=== PATIENT | female | born 1965 | race Caucasian/White ===

== ENCOUNTER 2019-01-17 12:00 | Emergency (ER) | payer OTHER ==
[~2019-01-17] VITALS: Ht 162.6 cm; Wt 66.4 kg
[~2019-01-17 12:00] MED LIST: CLIN300C10 PO
[2019-01-17 12:04] VITALS: Ht 162.6 cm; Wt 66.4 kg
[2019-01-17] MEDS ORDERED: LIDOCAINE 1% (MDV) 20 ML INJ SC ONE (13:30)
[2019-01-17] MEDS ORDERED: CLIN300C10 PO (14:49)
[2019-01-17] MEDS ORDERED: IBUP-1542 PO (14:50)
--- NOTE | 2019-01-17 16:38 | ERD ---
ER Documentation Chief Complaint Chief Complaint abcess vaginal area x 2 weeks HPI Patient is a 53-year-old female presents the ER for concerns of an abscess in her vaginal area x2 weeks. Patient states she went to see her doctor and she was given 5 days of clindamycin. Patient was advised if she does not have imp rovement in symptoms after taking clindamycin she should come to the ER. This patient presents to the ER. She denies any fevers or chills. Patient denies any dysuria, frequency, urgency or hematuria. No recent travel. No sick contacts. ROS All systems reviewed and are negative except as per history of present illness. Medications Home Meds Active Scripts Ibuprofen* (Motrin*) 600 Mg Tab, 600 MG PO Q6, #30 TAB Prov:CORAZON TATUM-Mario 01/17/19 Clindamycin Hcl* (Clindamycin Hcl*) 300 Mg Capsule, 300 MG PO TID for 5 Days, CAP Prov:CORAZON TATUM-C 01/17/19 Clindamycin Hcl* (Clindamycin Hcl*) 300 Mg Capsule, 300 MG PO TID for 10 Days, CAP Prov:ALEX JUAN C 05/29/16 Allergies Allergies: Coded Allergies: Penicillins (Verified Allergy, Intermediate, RASH, 05/31/16) PMhx/Soc History of Surgery: Yes (Pt states fistula rectal area 1 yr ago, vericose veins procedure) Anesthesia Reaction: No Hx Neurological Disorder: No Hx Respiratory Disorders: No Hx Cardiac Disorders: No Hx Psychiatric Problems: No Hx Miscellaneous Medical Probl: No Hx Alcohol Use: No Hx Substance Use: No Hx Tobacco Use: No Smoking Status: Never smoker FmHx Family History: No diabetes Physical Exam Vitals Vital Signs Date Temp Pulse Resp B/P (MAP) Pulse Ox O2 O2 Flow FiO2 Time Delivery Rate 01/17/19 98.3 74 18 150/72 100 12:04 (98) Physical Exam GENERAL: Well-developed, well-nourished female. Appears in no acute distress. Speaking in full sentences. HEAD: Normocephalic, atraumatic. EYES: Pupils are equally reactive bilaterally. EOMs grossly intact. No conju nctival erythema. NECK: Supple. No meningismus. Normal range of motion of the neck. LUNG: Clear to auscultation bilaterally. No rhonchi, wheezing, rales or coarse breath sounds. HEART: Regular rate and rhythm. No murmurs, rubs or gallops. FEMALE GENITALIA: Exam was completed with a flattening press operator present. 3 cm circular mass noted in the left external labia. Area is tender to touch. Minimal fluctuance. Area appears indurated. EXTREMITIES: Equal pulses bilaterally. No peripheral clubbing, cyanosis or edema. No unilateral leg swelling. NEUROLOGIC: Alert and oriented. Moving all four extremities without any difficulty. Normal speech. Steady gait. SKIN: Normal color. Warm and dry. No rashes or lesions. Results 24 hrs Current Medications Medications Dose Sig/Rosa Start Time Status Last (Trade) Ordered Route PRN Stop Time Admin Dose Reason Admin Lidocaine 20 ml ONCE ONCE 01/17/19 DC (Xylocaine SC 13:30 1% (Mdv) 20 01/17/19 13:31 ml) Procedures/MDM ED COURSE: The patient was stable throughout ED course. I kept the patient and/or family informed of laboratory and diagnostic imaging results throughout the ED course. PROCEDURES: INCISION AND DRAINAGE: The patient was verbally consented prior to procedure. Patient was explained the risks, benefits and alternatives to this procedure. Location: L labia Abscess size: 3 cm Anesthesia: local 1% lidocaine, 3 cc Preparation: The area was prepped in a sterile fashion using betadine x3 cleanses. A sterile field was prepared. Technique: A sterile 11 blade scalpel was used to make a 1 cm linear incision into the abscess. Procedure: A midline abscess incision was made using a sterile scalpel in a linear fashion. No discharge was expressed from the site. Blunt probing was attempted however no loculations were noted. Aspiration was also attempted however no fluid was obtained from the site. Bleeding was minimal. Packing: None The patient tolerated the procedure well with no complications. The wound was dressed in sterile gauze. The patient was neurovascularly intact post-procedure. Post-procedural wound care was discussed with the patient. MEDICAL DECISION MAKING: Patient is a 53-year-old female presents the ER for concerns of a left-sided Bartholin gland cyst. Vital signs were reviewed. Patient is afebrile. Patient was not hypoxic. Patient was hemodynamically stable. Incision and drainage was attempted however no purulent material was expressed from the site. Needle aspiration was also performed however no fluid was expressed from cyst today. Patient was advised to follow-up with a dramatic art teacher on an outpatient basis. Referral information provided. Patient was advised to continue taking clindamycin. Additional prescription was given as patient only had a 5-day supply. Patient was advised continue using warm compresses. Low suspicion for deep space infection, fistula or sepsis. Patient was nontoxic, [id number] prior to discharge. PRESCRIPTION: Clindamycin, ibuprofen DISCHARGE: At this time, patient is stable for discharge and outpatient management. I have instructed the patient to follow-up with his/her primary care physician in 1-2 days. I have discussed with the patient the possibility of needing to see a specialist for further workup and imaging studies if symptoms persist. I have instructed the patient to promptly return to the ER for any new or worsening symptoms including increased pain, fever, nausea, vomiting, weakness or LOC. The patient and/or family expressed understanding of and agreement with this plan. All questions were answered. Home care instructions were provided. Disclaimer: Inadvertent spelling and grammatical errors are likely due to EHR/dictation software use and do not reflect on the overall quality of patient care. Also, please note that the electronic time recorded on this note does not necessarily reflect the actual time of the patient encounter. Departure Diagnosis: Primary Impression: Bartholin's duct cyst Condition: Fair Patient Instructions: Bartholin's Cyst (No Infection) Referrals: [facility] YOU HAVE RECEIVED A MEDICAL SCREENING EXAM AND THE RESULTS INDICATE THAT YOU DO NOT HAVE A CONDITION THAT REQUIRES URGENT TREATMENT IN THE EMERGENCY DEPARTMENT. FURTHER EVALUATION AND TREATMENT OF YOUR CONDITION CAN WAIT UNTIL YOU ARE SEEN IN YOUR DOCTORS OFFICE WITHIN THE NEXT 1-2 DAYS. IT IS YOUR RESPONSIBILITY TO MAKE AN APPOINTMENT FOR FOLOW-UP CARE. IF YOU HAVE A PRIMARY DOCTOR --you should call your primary doctor and schedule an appointment IF YOU DO NOT HAVE A PRIMARY DOCTOR YOU CAN CALL OUR PHYSICIAN REFERRAL HOTLINE AT IF YOU CAN NOT AFFORD TO SEE A PHYSICIAN YOU CAN CHOSE FROM THE FOLLOWING [facility] [address] [facility] [address] [facility] [address] [facility] [address] [facility]. [facility] [address] [facility] [address] [facility]. [facility] YOU HAVE RECEIVED A MEDICAL SCREENING EXAM AND THE RESULTS INDICATE THAT YOU DO NOT HAVE A CONDITION THAT REQUIRES URGENT TREATMENT IN THE EMERGENCY DEPARTMENT. FURTHER EVALUATION AND TREATMENT OF YOUR CONDITION CAN WAIT UNTIL YOU ARE SEEN IN YOUR DOCTORS OFFICE WITHIN THE NEXT 1-2 DAYS. IT IS YOUR RESPONSIBILITY TO MAKE AN APPOINTMENT FOR FOLOW- CARE. IF YOU HAVE A PRIMARY DOCTOR --you should call your primary doctor and schedule and appointment IF YOU DO NOT HAVE A PRIMARY DOCTOR YOU CAN CALL OUR PHYSICIAN REFERRAL HOTLINE AT . IF YOU CAN NOT AFFORD TO SEE A PHYSICIAN YOU CAN CHOSE FROM THE FOLLOWING [facility] INSTITUTIONS: [facility] [address] [place] [address] [facility] [address] [place] [address] [facility] [address] [place] [address] [place] [address] [facility] [address] [place], [place] [phone] OFFICE FAX [facility] [address] [place], [place] [phone] [facility] [address] [place] [address] [address] [address] [address] [address] [place] [id number] [facility] [address] [place] [address] [address] [facility] [id number] - LYLE MOR[address]ES [address], [facility] [address], [place] [address] [facility]. [address], [facility] [phone], [facility] [address] [place] [address] Additional Instructions: Call your OBGYN TOMORROW for an appointment during the next 1-2 days.See the doctor sooner or return here if your condition worsens before your appointment time. CORAZON TATUM PA-C January 17, 2019 16:38
== END 2019-01-17 14:59 | disposition home or self-care (01) ==
LOC: FTE 12:00
DX: N75.0 Cyst of Bartholin's gland (principal)
CPT/HCPCS: 56420; Z7502; Z7610